=== PATIENT | male | born 1990 | race Caucasian/White ===

== ENCOUNTER 2019-07-07 02:00 | Emergency (ER) | payer BC ==
[~2019-07-07] VITALS: Ht 170.2 cm; Wt 79.2 kg
[2019-07-07] MEDS ORDERED: PANTOPRAZOLE (02:09)
[2019-07-07] MEDS ORDERED: KETOROLAC 30 MG/1 ML IM ONE (02:30)
[2019-07-07] MEDS ORDERED: OXYMETAZOLINE NASAL SPRAY 0.05%, 15ML NAS ONE (02:30)
[2019-07-07] MEDS ORDERED: OXYMETAZOLINE NASAL SPRAY 0.05%,30ML ONE (02:38)
[2019-07-07] MEDS ORDERED: KETOROLAC 60 MG/2 ML ONE (02:38)
[2019-07-07 02:51] LABS: BASOPHILS # (AUTO) 0.02 x10^3/uL (0-0.1); BASOPHILS % (AUTO) 0 % (0-1); EOSINOPHILS # (AUTO) 0.33 x10^3/uL (0-0.4); EOSINOPHILS % (AUTO) 2 % (1-7); LYMPHOCYTES # (AUTO) 2.33 x10^3/uL (1-3.4); LYMPHOCYTES % (AUTO) 16 % (22-44); MD NO; MEAN CORPUSCULAR HEMOGLOBIN 31.8 pg (27.5-34.5); MEAN CORPUSCULAR HGB CONC 33.7 g/dL (33.2-36.2); MEAN CORPUSCULAR VOLUME 94.4 fL (81-97); MEAN PLATELET VOLUME 9.3 fL (7.4-10.4); MONOCYTES # (AUTO) 1.24 x10^3/uL (0.2-0.8); MONOCYTES % (AUTO) 8 % (2-9); NEUTROPHILS # (AUTO) 11.03 x10^3/uL (1.8-6.8); NEUTROPHILS % (AUTO) 74 % (42-75); PLATELET COUNT 259 x10^3/uL (130-400); RED BLOOD COUNT 5.26 x10^6/uL (4.38-5.82)
[2019-07-07 03:02] LABS: ALANINE AMINOTRANSFERASE 52 U/L (12-78); ALBUMIN 3.9 g/dL (3.4-5.0); ANION GAP 6 mmol/L (5-15); CALCIUM 8.7 mg/dL (8.5-10.1); CHLORIDE 107 mmol/L (98-107); CREATININE 0.96 mg/dL (0.7-1.3)
[2019-07-07 03:04] LABS: ALKALINE PHOSPHATASE 96 U/L (45-117); BILIRUBIN,TOTAL 0.6 mg/dL (0.2-1.0); TOTAL PROTEIN 7.6 g/dL (6.4-8.2)
[2019-07-07] MEDS ORDERED: AMOXICILLIN/CLAV 875-125MG TABLET PO STA (03:32)
[2019-07-07 03:35] VITALS: BP 119/78
[2019-07-07] MEDS ORDERED: AMOXICILLIN/CLAV 875-125MG TABLET ONE (03:55)
== END 2019-07-07 04:14 | disposition home or self-care (01) ==
LOC: ED 03:45
DX: K04.7 Periapical abscess without sinus (principal); J01.00 Acute maxillary sinusitis, unspecified
CPT/HCPCS: 36415; 80053; 85025; 96372; 99283; J1885